=== PATIENT | female | born 1955 | race Two or more races ===

== ENCOUNTER → 2021-06-21 | Outpatient (CLI) | payer OTHER | END | disposition home or self-care (01) | LOC: LAB 14:56 → EDBD 14:56 | PROVIDERS: ATTEND Obstetrics & Gynecology | DX: N88.8 Other specified noninflammatory disorders of cervix uteri (principal) | CPT/HCPCS: 88302 ==

== ENCOUNTER 2024-08-13 00:48 | Inpatient (IN) | payer OTHER ==
[~2024-08-13] VITALS: Ht 162.6 cm; Wt 99.9 kg
[2024-08-13] VITALS (8 sets, daily range): BP systolic 96–116; BP diastolic 51–58; PULSE 62–91; RESP 11–20; TEMP 97.7–100.5; O2SAT 91–98
[2024-08-13 02:12] LABS: Urine Amorphous Crystal FEW /hpf (None Seen); Urine Bacteria FEW /hpf (None Seen); Urine Blood Negative /uL (Negative); Urine Clarity Turbid (Clear); Urine Color Light-Yellow (Yellow); Urine Mucus FEW (None Seen); Urine Protein, UAD Negative (Negative); Urine Specific Gravity 1.014 (1.001-1.035); Urine Urobilinogen Normal (Negative); Urine WBC 3 /hpf (0 - 5); Urine pH 7.5 (5.0-9.0)
[2024-08-13 02:40] LABS: Basophils # (auto) 0 10 ^3/uL (0-0.2); Basophils % (auto) 0.1 % (0.0-2.0); Eosinophils # (auto) 0 10 ^3/uL (0-0.8); Eosinophils % (auto) 0.3 % (0.0-7.0); Hemoglobin 15.1 g/dL (12.2-16.2); Lymphocytes # (auto) 0.7 10 ^3/uL (0.4-5.4); Monocytes % (auto) 4.8 % (0.0-12.0)
[2024-08-13 02:41] LABS: Hematocrit 43.7 % (36.0-46.0); Lymphocytes % (auto) 9.2 % (10.0-50.0); Mean Corpuscular Hgb Conc. 34.5 g/dL (32.0-36.0); Mean Corpuscular Volume 98.5 fL (80.0-100.0); Monocytes # (auto) 0.3 10 ^3/uL (0-1.3); Neutrophils # (auto) 6.2 10 ^3/uL (1.6-8.6); Neutrophils % (auto) 85.6 % (37.0-80.0); Platelet Count (auto) 183 10^3/uL (140-450); Red Blood Cells 4.44 10^6/uL (4.0-5.20); Red Cell Distribution Width 12.8 % (11.8-14.3); White Blood Cell 7.2 10^3/uL (4.4-10.8)
--- NOTE | 2024-08-13 02:44 | ED.PDOC ---
History of Present Illness HPI Comments 69 y/o F, with a Hx of HLD, HTN, obesity, and EtOH use, presents with c/o abdominal pain, nausea, chills, diaphoresis, and constipation, today. Patient endorses on sudden and unprovoked onset of symptoms, this morning. She states on pain, initially, starting in her RLQ and then radiating to her RUQ and then across to her LUQ and it worsening whenever laying on her back or right-side. She also endorses on no relief or improvement of symptoms with Pepto Bismol, Tums, or Jocelyn Butterfield use. Patient informs of having no pertinent or relevant Hx aside from a FMHX of appendicits. Patient reports no recent stressors, injuries, sick contact, spoiled food, or substance use/exposure. Patient denies having any vomiting, diarrhea, fever, or other associated symptoms or modifiers at this time. Chief Complaint: Abdominal Pain Time Seen by MD: 02:20 Reviewed Notes: Nurses Notes, Medications, Allergies Allergies: Coded Allergies: Penicillins (Verified Allergy, Unknown, 08/13/24) Information Source: Patient Mode of Arrival: Ambulatory Severity: Moderate Timing: Hours Duration: Since onset Prehospital treatment: None Past Medical History PAST MEDICAL HISTORY: High Lipids, HTN Past Medical History (Other): obesity Surgical History: Denies all surgeries [employer] History: Denies all [employer] Hx Family History Family History (Other): appendicitis Social History Smoker: Non-Smoker Alcohol: Occasionally Drugs: Denies Drug Use Lives In: Home Constitutional: reports: chills, diaphoresis; denies: fatigue, fever, malaise, sweats, weakness, others EENTM: denies: blurred vision, double vision, ear bleeding, ear discharge, ear drainage, ear pain, ear ringing, eye pain, eye redness, hearing loss, mouth pain, mouth swelling, nasal discharge, nose bleeding, nose congestion, nose pain, photophobia, tearing, throat pain, throat swelling, voice changes, others Respiratory: denies: cough, hemoptysis, orthopnea, SOB at rest, shortness of breath, SOB with excertion, stridor, wheezing, others Cardiovascular: denies: chest pain, dizzy spells, diaphoresis, Dyspnea on exertion, edema, irregular heart beat, left arm pain, lightheadedness, palpitations, PND, syncope, others Gastrointestinal: reports: abdominal pain (RLQ, radiates to RUQ and LUQ ), constipated, nausea; denies: abdomen distended, blood streaked bowels, diarrhea, dysphagia, difficulty swallowing, hematemesis, melena, poor appetite, poor fluid intake, rectal bleeding, rectal pain, vomiting, others Genitourinary: denies: abnormal vagina bleeding, burning, dyspareunia, dysuria, flank pain, frequency, hematuria, incontinence, pain, , vagina discharge, urgency, others Neurological: denies: dizziness, fainting, headache, left sided numbness, left sided weakness, numbness, paresthesia, pre-existing deficit, right sided numbnes s, right sided weakness, seizure, speech problems, tingling, tremors, weakness, others Musculoskeletal: denies: back pain, gout, joint pain, joint swelling, muscle pain, muscle stiffness, neck pain, others Integumetry: denies: bruises, change in color, change in hair/nails, dryness, laceration, lesions, lumps, rash, wounds, others Allergic/Immunocompromised: denies: Difficulty Healing, Frequent Infections, Hives, Itching, others Hematologic/Lymphatic: denies: anemia, blood clots, easy bleeding, easy bruising, swollen glands, others Endocrine: denies: excessive hunger, excessive sweating, excessive thirst, excessive urination, flushing, intolerance to cold, intolerance to heat, unexplained weight gain, unexplained weight loss, others Psychiatric: denies: anxiety, bipolar disorder, depression, hopeless, panic disorder, schizophrenia, sleepless, suicidal, others All Other Systems: Reviewed and Negative Physical Exam General Appearance: Moderate Distress, Obese HEENT: Normal ENT Inspection, Pharynx Normal, TMs Normal Neck: Full Range of Motion, Non-Tender, Normal, Normal Inspection Respiratory: Chest Non-Tender, Lungs Clear, No Accessory Muscle Use, No Respiratory Distress, Normal Breath Sounds Cardiovascular: No Edema, No JVD, No Murmur, No Gallop, Normal Peripheral Pulses, Regular Rate/Rhythm Breast Exam: Deferred Gastrointestinal: Diffuse, No Organomegaly, No Pulsatile Mass, Normal Bowel Sounds, RLQ (RLQ tendernes, moderate without rebound ), Soft, Tenderness (RLQ tendernes, moderate without rebound ) Genitalia: Deferred Pelvic: Deferred Rectal: Deferred Extremities: No calf tenderness, Normal capillary refill, Normal inspection, Normal range of motion, Non-tender, No pedal edema Musculoskeletal : Apperance: Normal Neurologic: Alert, security ambassador II-XII nml as Tested, No Motor Deficits, Normal Affect, Normal Mood, No Sensory Deficits Cerebellar Function: Normal Reflexes: Normal Skin: Dry, Normal Color, Warm Lymphatic: No Adenopathy Was a procedure done? Was a procedure done?: No Differential Dx Considerations may include: appendicitis, ectopic , ovarian cysts, nephrolithiasis, pyelonephritis, renal colic, acute abdomen X-Ray, Labs, Meds, VS Vital Signs Date Time Temp Pulse Resp B/P (MAP) Pulse Ox O2 Delivery O2 Flow Rate FiO2 08/13/24 03:21 98.5 67 18 134/73 (93) 99 98.5 08/13/24 03:20 20 96 Room Air* 0 21 21 08/13/24 00:58 97.9 81 18 138/55 (82) 96 Lab Test 08/13/24 03:15 08/13/24 02:31 08/13/24 01:00 Range/Units Troponin I High Sensitivity 18 19 </=34 ng/L White Blood Count 7.2 4.4-10.8 10^3/uL Red Blood Count 4.44 4.0-5.20 10^6/uL Hemoglobin 15.1 12.2-16.2 g/dL Hematocrit 43.7 36.0-46.0 % Mean Corpuscular Volume 98.5 80.0-100.0 fL Mean Corpuscular Hemoglobin 34.0 H 28.0-32.0 pg Mean Corpuscular Hemoglobin Concent 34.5 32.0-36.0 g/dL Red Cell Distribution Width 12.8 11.8-14.3 % Platelet Count 183 140-450 10^3/uL Mean Platelet Volume 7.5 6.9-10.8 fL Neutrophils (%) (Auto) 85.6 H 37.0-80.0 % Lymphocytes (%) (Auto) 9.2 L 10.0-50.0 % Monocytes (%) (Auto) 4.8 0.0-12.0 % Eosinophils (%) (Auto) 0.3 0.0-7.0 % Basophils (%) (Auto) 0.1 0.0-2.0 % Neutrophils # (Auto) 6.2 1.6-8.6 10 ^3/uL Lymphocytes # (Auto) 0.7 0.4-5.4 10 ^3/uL Monocytes # (Auto) 0.3 0-1.3 10 ^3/uL Eosinophils # (Auto) 0 0-0.8 10 ^3/uL Basophils # (Auto) 0 0-0.2 10 ^3/uL Nucleated Red Blood Cells 0.0 % Sodium Level 139 136-145 mmol/L Potassium Level 4.4 3.5-5.1 mmol/L Chloride Level 100 98-107 mmol/L Carbon Dioxide Level 30 20-31 mmol/L Anion Gap 9 5-15 Blood Urea Nitrogen 8 L 9-23 mg/dL Creatinine 0.90 0.550-1.02 mg/dL Glomerular Filtration Rate Calc 70 >90 mL/min BUN/Creatinine Ratio 8.9 L 10.0-20.0 Serum Glucose 164 H 74-106 mg/dL Calcium Level 10.6 H 8.7-10.4 mg/dL Total Bilirubin 1.2 H 0.2-1.0 mg/dL Aspartate Amino Transferase (AST) 17 13-40 U/L Alanine Aminotransferase (ALT) 12 7-40 U/L Alkaline Phosphatase 111 46-116 U/L Total Protein 7.2 5.7-8.2 g/dL Albumin 4.6 3.2-4.8 g/dL Lipase 29 12-53 U/L Urine Color Light-yellow Yellow Urine Clarity Turbid H Clear Urine pH 7.5 5.0-9.0 Urine Specific [place] 1.014 1.001-1.035 Urine Protein Negative Negative Urine Ketones 1+ H Negative Urine Blood Negative Negative /uL Urine Nitrite Negative Negative Urine Bilirubin Negative Negative Urine Urobilinogen Normal Negative mg/dL Urine Leukocyte Esterase Negative Negative /uL Urine RBC 1 0 - 4 /hpf Urine WBC 3 0 - 5 /hpf Urine Squamous Epithelial Cells Few <5 /hpf Urine Amorphous Crystals Few None Seen /hpf Urine Bacteria Few H None Seen /hpf Urine Mucus Few None Seen Urine Glucose Normal Normal mg/dL Current Medications Medications (Trade) Dose Ordered Sig/Lena Route Start Time Stop Time Status Last Admin Ondansetron HCl (Zofran Po) 4 mg ONCE ONCE PO 08/13/24 02:30 08/13/24 02:31 DC 08/13/24 03:19 Acetaminophen/ Hydrocodone Bitart ([place] 10/325MG Tab) 1 tab ONCE ONCE PO 08/13/24 02:30 08/13/24 02:31 DC 08/13/24 03:20 First troponin is 19. Second troponin is 18. EKG shows no signs of ischemia. UA is normal. Lipase is 29. CMP is normal. CBC is normal [place] [address] Ph: [phone] DIAGNOSTIC IMAGING Diagnostic Imaging Report : [id number] Signed PATIENT: NABOR HORNE AACCT: [id number] UNIT: [id number] : 1955 LOC: ER ROOM / BED: / AGE / SEX: 69 / F ADM STATUS: REG ER SERVICE 6 ORDERING PHYSICIAN: REINALDO MONIQUE MD PROCEDURE(s): ABPL - CT AB PEL WO CON-NO ORAL OR IV REASON: abd pain ORDER NUMBER(s): [id number], ACCESSION NUMBER(s): [id number] Exam: CT CT AB PEL WO CON-NO ORAL OR IV History: abd pain Comparison Study: None available at time of dictation. TECHNIQUE: Multidetector CT of the abdomen was performed from lung bases to p ubic symphysis. Imaging was performed without IV contrast. Axial, coronal and sagittal multiplanar reformats were obtained from the axial data set by the technologist. Radiation optimization: All CT scans at this facility use at least one of these dose optimization techniques: automated exposure control mA and/or kV adjustment per patient size (includes targeted exams where dose is matched to clinical indication) or iterative reconstruction. Radiation Dose : 1. Abdomen/Pelvis: DLP 1086.12 mGy*cm. FINDINGS: Evaluation of solid organs is limited due to lack of intravenous contrast use. Findings: Imaged portions of the lung bases appear unremarkable. Limited noncontrast evaluation of the liver, spleen, pancreas and adrenal glands appear unremarkable. There is cholelithiasis. No evidence of bowel obstruction. The appendix is dilated measuring 1.5 cm with multiple calculi including large calculus at the proximal aspect measuring 1.2 cm. No discrete abscess or evidence of perforation. No free fluid, free air, or adenopathy. No suspicious osseous lesion. Severe degenerative changes at L5-S1. IMPRESSION: 1. Findings consistent with acute appendicitis with appendicolith. No evidence of perforation or abscess. HS:Y ATED BY: EDEN COON MD DICTATED DATE/TIME: 08/13/24515 SIGNED BY: EDEN COON MD SIGNED DATE/TIME: 08/13/24515 CC: Dr. Styles was called and paged. The patient will be admitted to the hospitalist for further evaluation and care. Time of 1ST Reevaluation: 02:50 Reevaluation 1ST: Unchanged Patient Education/Counseling: Diagnosis, Treatment Family Education/Counseling: No Family Present Departure 1 Departure Time of Disposition: 05:35 Impression: Primary Impression: Appendicitis Qualified Codes: K35.80 - Unspecified acute appendicitis Disposition: 09 ADMITTED INPATIENT Admit to: Med Surg Condition: Guarded Discharged With: Self Critical Care Note Critical Care Time?: No Stability Stability form required: No Heart Score Heart Score: Heart Score Response (Comments) Value History N/A 0 EKG N/A 0 Age N/A 0 Risk Factors N/A 0 Troponin N/A 0 Total 0 I personally scribed for REINALDO MONIQUE MD ([email or web address]) on 08/13/24 at 02:44. Electronically submitted by Zaid Mora ([email or web address]). REINALDO MONIQUE MD Aug 13, 2024 02:44
[2024-08-13 02:53] LABS: Alanine Aminotransferase 12 U/L (7-40); Alkaline Phosphatase 111 U/L (46-116); Anion Gap 9 (5-15); Aspartate Aminotransferase 17 U/L (13-40); BUN/Creatinine Ratio 8.9 (10.0-20.0); Carbon Dioxide 30 mmol/L (20-31); Chloride 100 mmol/L (98-107); Lipase 29 U/L (12-53); Potassium 4.4 mmol/L (3.5-5.1); Sodium 139 mmol/L (136-145)
[2024-08-13 02:54] LABS: Albumin 4.6 g/dL (3.2-4.8); Total Protein 7.2 g/dL (5.7-8.2)
[2024-08-13 02:55] LABS: Bilirubin, Total 1.2 mg/dL (0.2-1.0); Blood Urea Nitrogen 8 mg/dL (9-23); Calcium 10.6 mg/dL (8.7-10.4); Glucose 164 mg/dL (74-106)
[2024-08-13] MEDS: ONDANSETRON ODT 4 MG TAB PO ONE (03:19)
[2024-08-13] MEDS: HYDROcodone-ACET 10/325MG TAB PO ONE (03:20)
--- NOTE | 2024-08-13 05:17 | DVH ---
Exam: CT CT AB PEL WO CON-NO ORAL OR IV History: abd pain Comparison Study: None available at time of dictation. TECHNIQUE: Multidetector CT of the abdomen was performed from lung bases to pubic symphysis. Imaging was performed without IV contrast. Axial, coronal and sagittal multiplanar reformats were obtained fr om the axial data set by the technologist. Radiation optimization: All CT scans at this facility use at least one of these dose optimization gilberto hniques: automated exposure control mA and/or kV adjustment per patient size (includes targeted exam s where dose is matched to clinical indication) or iterative reconstruction. Radiation Dose : 1. Abdomen/Pelvis: DLP 1086.12 mGy*cm. FINDINGS: Evaluation of solid organs is limited due to lack of intravenous contrast use. Findings: Imaged portions of the lung bases appear unremarkable. Limited noncontrast evaluation of the liver, spleen, pancreas and adrenal glands appear unremarkable. There is cholelithiasis. No evidence of bowel obstruction. The appendix is dilated measuring 1.5 cm with multiple calculi including large calculus at the proximal aspect measuring 1.2 cm. No discrete abscess or evidence of perforation. No free fluid, free air, or adenopathy. No suspicious osseous lesion. Severe degenerative changes at L5-S1. IMPRESSION: 1. Findings consistent with acute appendicitis with appendicolith. No evidence of perforation or absc ess. HS:Y
[2024-08-13 05:55] LABS: INR 1.02 (0.9-1.15); Prothrombin Time 10.8 sec (9.3-11.8)
--- NOTE | 2024-08-13 07:52 | DVH ---
CHEST RADIOGRAPH Indication: appendicitis Technique: Single frontal view of the chest was obtained Comparison: None IMPRESSION: The heart appears prominent size. The lungs appear clear without focal airspace opacity, effusion, o r pneumothorax.
[2024-08-13] MEDS: fentaNYL CITRATE 100 MCG/2 ML VL IV ONE (08:48)
[2024-08-13] MEDS: SODIUM CHLORIDE 0.9% 2,000 ML IV ONE (08:48)
[2024-08-13] MEDS: cefTRIAXone 1GM/50ML D5W 50 ML IV ONE (08:48)
[2024-08-13] MEDS ORDERED: MORPHINE SULFATE 4 MG/ML SYR/VIAL IV PRN (09:15)
[2024-08-13] MEDS: ONDANSETRON HCL 4 MG/2 ML VIAL IV PRN (10:58)
[2024-08-13] MEDS: MORPHINE SULFATE INJ 2 MG/ml SYRG IV PRN (10:59)
[2024-08-13] MEDS: LIDOCAINE W/ EPINEPHRINE 1% 20ML VIAL ONE (11:23)
[2024-08-13] MEDS: D5W/SOD CHL 0.45% 1,000 ML IV SCH (11:26)
[2024-08-13] MEDS ORDERED: MIDAZOLAM HCL 2MG/2ML 2ml VIAL (1mg/ml) ONE (11:29)
[2024-08-13] MEDS ORDERED: fentaNYL CITRATE 100 MCG/2 ML VL ONE (11:29)
[2024-08-13] MEDS ORDERED: PROPOFOL 10 MG/ML 20 ML IV ONE ×2 (11:29→13:20)
[2024-08-13] MEDS ORDERED: ROCURONIUM 10MG/ML 10ML VIAL IV ONE (11:29)
[2024-08-13] MEDS ORDERED: ONDANSETRON HCL 4 MG/2 ML VIAL ONE (11:31)
[2024-08-13] MEDS ORDERED: LIDOCAINE 2% (LOCAL ANESTH.) PF 5ml SDV ONE (11:32)
--- NOTE | 2024-08-13 11:52 | DVHINCON2 ---
Date of service: Aug 13, 2024 History of Present Illness 69-year-old female complaining of one day history of right lower quadrant abdominal pain associated with nausea. Patient denies any fevers or chills. Past Medical History Hypertension Past Surgical History Denies any abdominal surgeries Family History Noncontributory Social History Denies tobacco. Reports some alcohol. No IV drug use. Allergies: Coded Allergies: Penicillins (Verified Allergy, Unknown, 08/13/24) Current Medications Current Medications Medications (Trade) Dose Ordered Sig/Lena Route PRN Reason Start Time Stop Time Status Last Admin Morphine Sulfate 2 mg Q3HPRN PRN IV MODERATE PAIN (4-6 PAIN SCALE) 08/13/24 09:15 08/13/24 10:59 Morphine Sulfate 3 mg Q3HPRN PRN IV SEVERE PAIN (7-10 PAIN SCALE) 08/13/24 09:15 Ondansetron HCl (Zofran) 4 mg Q4HPRN PRN IV NAUSEA / VOMITING 08/13/24 09:15 08/13/24 10:58 Dextrose/Sodium Chloride 1,000 ml @ 75 mls/hr [id number] IV 08/13/24 09:15 08/13/24 11:26 Vital Signs Vital Signs Date Time Temp Pulse Resp B/P (MAP) Pulse Ox O2 Delivery O2 Flow Rate FiO2 08/13/24 11:31 74 16 126/55 08/13/24 10:00 97 08/13/24 08:00 98.4 98.4 08/13/24 07:28 Nasal Cannula* 2 28 Physical Exam GEN: Age-appropriate female in no acute distress. Alert. HEENT: Normocephalic atraumatic. Moist mucous membranes. Anicteric sclerae. CV: RRR Respiratory: CTAB ABD: Localized right lower quadrant tenderness to palpation with localized guarding. Nondistended. CT of the abdomen and pelvis: Appendix is dilated measuring up to 1.5 cm with multiple calculi including a large calculus at the proximal aspect measuring 1.2 cm consistent with acute appendicitis. Labs/Diagnostic Data Labs Test 08/13/24 03:15 08/13/24 02:31 08/13/24 01:00 Range/Units Troponin I High Sensitivity 18 </=34 ng/L White Blood Count 7.2 4.4-10.8 10^3/uL Red Blood Count 4.44 4.0-5.20 10^6/uL Hemoglobin 15.1 12.2-16.2 g/dL Hematocrit 43.7 36.0-46.0 % Mean Corpuscular Volume 98.5 80.0-100.0 fL Mean Corpuscular Hemoglobin 34.0 H 28.0-32.0 pg Mean Corpuscular Hemoglobin Concent 34.5 32.0-36.0 g/dL Red Cell Distribution Width 12.8 11.8-14.3 % Platelet Count 183 140-450 10^3/uL Mean Platelet Volume 7.5 6.9-10.8 fL Neutrophils (%) (Auto) 85.6 H 37.0-80.0 % Lymphocytes (%) (Auto) 9.2 L 10.0-50.0 % Monocytes (%) (Auto) 4.8 0.0-12.0 % Eosinophils (%) (Auto) 0.3 0.0-7.0 % Basophils (%) (Auto) 0.1 0.0-2.0 % Neutrophils # (Auto) 6.2 1.6-8.6 10 ^3/uL Lymphocytes # (Auto) 0.7 0.4-5.4 10 ^3/uL Monocytes # (Auto) 0.3 0-1.3 10 ^3/uL Eosinophils # (Auto) 0 0-0.8 10 ^3/uL Basophils # (Auto) 0 0-0.2 10 ^3/uL Nucleated Red Blood Cells 0.0 % Prothrombin Time 10.8 9.3-11.8 sec Prothrombin Time INR 1.02 0.9-1.15 Sodium Level 139 136-145 mmol/L Potassium Level 4.4 3.5-5.1 mmol/L Chloride Level 100 98-107 mmol/L Carbon Dioxide Level 30 20-31 mmol/L Anion Gap 9 5-15 Blood Urea Nitrogen 8 L 9-23 mg/dL Creatinine 0.90 0.550-1.02 mg/dL Glomerular Filtration Rate Calc 70 >90 mL/min BUN/Creatinine Ratio 8.9 L 10.0-20.0 Serum Glucose 164 H 74-106 mg/dL Calcium Level 10.6 H 8.7-10.4 mg/dL Total Bilirubin 1.2 H 0.2-1.0 mg/dL Aspartate Amino Transferase (AST) 17 13-40 U/L Alanine Aminotransferase (ALT) 12 7-40 U/L Alkaline Phosphatase 111 46-116 U/L Total Protein 7.2 5.7-8.2 g/dL Albumin 4.6 3.2-4.8 g/dL Lipase 29 12-53 U/L Urine Color Light-yellow Yellow Urine Clarity Turbid H Clear Urine pH 7.5 5.0-9.0 Urine Specific [place] 1.014 1.001-1.035 Urine Protein Negative Negative Urine Ketones 1+ H Negative Urine Blood Negative Negative /uL Urine Nitrite Negative Negative Urine Bilirubin Negative Negative Urine Urobilinogen Normal Negative mg/dL Urine Leukocyte Esterase Negative Negative /uL Urine RBC 1 0 - 4 /hpf Urine WBC 3 0 - 5 /hpf Urine Squamous Epithelial Cells Few <5 /hpf Urine Amorphous Crystals Few None Seen /hpf Urine Bacteria Few H None Seen /hpf Urine Mucus Few None Seen Urine Glucose Normal Normal mg/dL Assessment 1. Acute appendicitis Plan/Recommendation 1. Laparoscopic appendectomy possible open surgery Informed consent: The surgery and its risks including but not limited to infection, bleeding requiring possible blood transfusion with the risk of hepatitis or HIV infection, open surgery, possibility that the abdominal pain is caused by different intra-abdominal pathology other than acute appendicitis in which case we will proceed with the appendectomy if it is safe to do so and then treat the problem according to intraoperative findings were explained to the patient and her . All questions were answered to their satisfaction. She expressed verbal understanding and wished to proceed with the surgery. Plan discussed with: Patient, Spouse JENNIE KING MD Aug 13, 2024 11:52
[2024-08-13] MEDS ORDERED: NITROGLYCERIN 0.4 MG SL TAB SL PRN (13:15)
[2024-08-13] MEDS ORDERED: MORPHINE SULFATE INJ 2 MG/ml SYRG IV PRN (13:15)
--- NOTE | 2024-08-13 13:18 | DVHOP2 ---
Operative Report - 2 Report Details Date: 08/13/24 Preop Diagnosis: Acute appendicitis Postop Diagnosis: Same Surgeon: Edis Lainez MD Coloring Room Worker: None Anesthesiologist: Dr. Pollock Anesthesia: General, Local Consent: The surgery and its risks including but not limited to infection, bleeding requiring possible blood transfusion, possible open surgery, possibility that the abdominal pain is caused by different intra-abdominal pathology other than acute appendicitis in which case we will proceed with the appendectomy if it is safe to do so and then treat the problem according to intraoperative findings, possible perioperative MA or stroke were explained to the patient and her . All questions were answered to the patient's satisfaction. The patient expressed verbal understanding and wished to proceed with the surgery. Complications: None Estimated Blood Loss: 30 mL Fluids: 900 mL Name of Procedure Performed Laparoscopic appendectomy Procedure Details Procedure Details: After induction of general anesthesia, a Hernandez catheter was placed by the OR nursing staff. Patient's abdomen was then prepped and draped in standard surgical fashion. A small supraumbilical incision was made and this incision wa s taken through the abdominal wall down to the fascia which was opened using electrocautery. Peritoneum was then bluntly divided gaining access to the intra-abdominal cavity. Interrupted 0 Vicryl sutures were placed through the supraumbilical fascial incision and a Richardson trocar was introduced and secured using the Vicryl sutures. Abdomen was insufflated to 15 mmHg and camera was inserted. Visual examination of the intestine under the fascial incision appeared normal without injury. Under direct visualization, a 5 mm bladeless trocar was placed in the left lower quadrant and a 2nd 5 mm bladeless trocar was placed in the suprapubic region both under direct visualization. Examination of the right lower quadrant revealed inflamed and dilated appendix without gross perforation. It was somewhat retrocecal in position and and minimal dissection was performed to free up the appendix and from the cecum. A small opening was made at the base of the appendix at the mesoappendix and a endova scular stapler was used to staple across the base of the appendix without complication. The mesoappendix was then stapled and divided using endovascular staplers. Specimen was then removed from the abdominal cavity using an endo pouch bag and sent off the surgical field. Abdomen was then re-insufflated. The staple line appeared intact without active bleeding. There was small amount of serosanguineous fluid collected in the pelvis and the pelvic area was then well irrigated until fluid was clear. Trocars were then removed under direct visualization as the abdomen was deflated. Additional interrupted 0 Vicryl sutures were placed through the supraumbilical fascial incision and the sutures were tied down closing off the supraumbilical fascia. Surgical sites were irrigated injected with 10 mL of 1% lidocaine with epinephrine. Skin incisions were closed using deborah. Surgical sites were cleaned and dried and dressings were applied. Sponge, needle, instrument count at the end of the case were reported to be correct by the nursing staff. Patient tolerated procedure well and at the time of dictation, she is being awakened from general anesthesia. Specimen: Appendix Condition Stable Disposition Still a Patient EDIS LAINEZ MD Aug 13, 2024 13:18
[2024-08-13] MEDS ORDERED: GLYCOPYRROLATE 0.2 MG/ML 1ML VIAL ONE (13:20)
[2024-08-13] MEDS ORDERED: NEOSTIGMINE 1 MG/ML INJ (10mg/10ML VIAL) ONE (13:21)
[2024-08-13] MEDS ORDERED: HYDROmorphone HCL 2 MG/ML VL/or syr IV PRN ×2 (13:45)
--- NOTE | 2024-08-13 16:21 | DVHHP2 ---
History of Present Illness Reason for Visit: Abdominal pain History of Present Illness 69 y/o F, with a Hx of HLD, HTN, obesity, and EtOH use, presents with c/o abdominal pain, nausea, chills, diaphoresis, and constipation, today. Patient endorses on sudden and unprovoked onset of symptoms, this morning. She states on pain, initially, starting in her RLQ and then radiating to her RUQ and then across to her LUQ and it worsening whenever laying on her back or right-side. She also endorses on no relief or improvement of symptoms with Pepto Bismol, Tums, or Jocelyn [place] use. Patient informs of having no pertinent or relevant Hx aside from a FMHX of appendicits. Patient reports no recent stressors, injuries, sick contact, spoiled food, or substance use/exposure. Patient denies having any vomiting, diarrhea, fever, or other associated symptoms or modifiers at this time. Patient noted to have a acute appendicitis based on presentation and CT of the abdomen and pelvis. ER physician called general surgeon who he is taking patient to OR for appendectomy. Subsequently patient will be admitted postop by hospitalist for medical management. Past Medical History Hypertension and hyperlipidemia Past Surgical History: None Family History: Hypertension Smoke: No ALCOHOL: occassional Lives: with Family Review of Systems Review of Systems No chest pain shortness for breath. No fevers chills sweats. Other review of systems reviewed normal. Allergies: Coded Allergies: Penicillins (Verified Allergy, Unknown, 08/13/24) Medications Current Medications Medications Dose Ordered Sig/Lena Route Start Time Stop Time Status Last Admin Dose Admin Morphine Sulfate 2 mg Q3HPRN PRN IV 08/13/24 09:15 08/13/24 10:59 2 MG Morphine Sulfate 3 mg Q3HPRN PRN IV 08/13/24 09:15 Ondansetron HCl 4 mg Q4HPRN PRN IV 08/13/24 09:15 08/13/24 10:58 4 MG Dextrose/Sodium Chloride 1,000 ml @ 75 mls/hr [id number] IV 08/13/24 09:15 08/13/24 11:26 75 MLS/HR Nitroglycerin 0.4 mg Q5MINP PRN SL 08/13/24 13:15 Morphine Sulfate 2 mg Q30M PRN IV 08/13/24 13:15 Exam Vital Signs Vital Signs Date Time Temp Pulse Resp B/P (MAP) Pulse Ox O2 Delivery O2 Flow Rate FiO2 08/13/24 14:33 98.2 72 18 96/51 (66) 96 98.2 08/13/24 14:30 Room Air* 0 21 Exam Patient underwent appendectomy few years ago. Now back in her room. at bedside. Comfortable in bed without distress. HEENT pupils equal round react to light. Neck supple no JVD. Heart regular rate and rhythm S1 plus S2. Lungs fair air movement without rales wheezing. Abdomen soft positive bowel sounds. Extremities no edema positive distal pedal pulses. Labs/Xrays Labs Test 08/13/24 03:15 08/13/24 02:31 08/13/24 01:00 Range/Units Troponin I High Sensitivity 18 </=34 ng/L White Blood Count 7.2 4.4-10.8 10^3/uL Red Blood Count 4.44 4.0-5.20 10^6/uL Hemoglobin 15.1 12.2-16.2 g/dL Hematocrit 43.7 36.0-46.0 % Mean Corpuscular Volume 98.5 80.0-100.0 fL Mean Corpuscular Hemoglobin 34.0 H 28.0-32.0 pg Mean Corpuscular Hemoglobin Concent 34.5 32.0-36.0 g/dL Red Cell Distribution Width 12.8 11.8-14.3 % Platelet Count 183 140-450 10^3/uL Mean Platelet Volume 7.5 6.9-10.8 fL Neutrophils (%) (Auto) 85.6 H 37.0-80.0 % Lymphocytes (%) (Auto) 9.2 L 10.0-50.0 % Monocytes (%) (Auto) 4.8 0.0-12.0 % Eosinophils (%) (Auto) 0.3 0.0-7.0 % Basophils (%) (Auto) 0.1 0.0-2.0 % Neutrophils # (Auto) 6.2 1.6-8.6 10 ^3/uL Lymphocytes # (Auto) 0.7 0.4-5.4 10 ^3/uL Monocytes # (Auto) 0.3 0-1.3 10 ^3/uL Eosinophils # (Auto) 0 0-0.8 10 ^3/uL Basophils # (Auto) 0 0-0.2 10 ^3/uL Nucleated Red Blood Cells 0.0 % Prothrombin Time 10.8 9.3-11.8 sec Prothrombin Time INR 1.02 0.9-1.15 Sodium Level 139 136-145 mmol/L Potassium Level 4.4 3.5-5.1 mmol/L Chloride Level 100 98-107 mmol/L Carbon Dioxide Level 30 20-31 mmol/L Anion Gap 9 5-15 Blood Urea Nitrogen 8 L 9-23 mg/dL Creatinine 0.90 0.550-1.02 mg/dL Glomerular Filtration Rate Calc 70 >90 mL/min BUN/Creatinine Ratio 8.9 L 10.0-20.0 Serum Glucose 164 H 74-106 mg/dL Calcium Level 10.6 H 8.7-10.4 mg/dL Total Bilirubin 1.2 H 0.2-1.0 mg/dL Aspartate Amino Transferase (AST) 17 13-40 U/L Alanine Aminotransferase (ALT) 12 7-40 U/L Alkaline Phosphatase 111 46-116 U/L Total Protein 7.2 5.7-8.2 g/dL Albumin 4.6 3.2-4.8 g/dL Lipase 29 12-53 U/L Urine Color Light-yellow Yellow Urine Clarity Turbid H Clear Urine pH 7.5 5.0-9.0 Urine Specific [place] 1.014 1.001-1.035 Urine Protein Negative Negative Urine Ketones 1+ H Negative Urine Blood Negative Negative /uL Urine Nitrite Negative Negative Urine Bilirubin Negative Negative Urine Urobilinogen Normal Negative mg/dL Urine Leukocyte Esterase Negative Negative /uL Urine RBC 1 0 - 4 /hpf Urine WBC 3 0 - 5 /hpf Urine Squamous Epithelial Cells Few <5 /hpf Urine Amorphous Crystals Few None Seen /hpf Urine Bacteria Few H None Seen /hpf Urine Mucus Few None Seen Urine Glucose Normal Normal mg/dL Assessment/Plan Assessment/Plan Acute appendicitis status post appendectomy. Hypertension Hyperlipidemia Continue current supportive care and treatment as she is on. Empiric antibiotics IV fluids. Pain and nausea medications. Incentive spirometry. Clear liquid diet advance as she tolerates. Resume home medications. Otherwise follow clinical management per clinical course/postop recovery and recommendations from the surgeon. Discussed with the at bedside regard ing care plan. Plan discussed with: Spouse My Orders Orders - BERNABE DANIELSON MD Procedure Category Date Status Time * Surgical Consult CONS 08/13/24 Transmitted Morphine Sulfate PHA 08/13/24 In Process Injection 09:15 Morphine Sulfate PHA 08/13/24 In Process Injection 09:15 Ondansetron Hcl PHA 08/13/24 In Process (Zofran) 09:15 D5w/Sod Chl 0.45% PHA 08/13/24 In Process (D5w 1/2ns) 09:15 Basic Metabolic Panel LAB 08/14/24 Verified 04:00 Complete Blood Count LAB 08/14/24 Verified 04:00 Admit ADMIT 08/13/24 Transmitted 13:11 Oxygen By Nasal RT 08/13/24 Transmitted Cannula 13:11 Nitroglycerin PHA 08/13/24 In Process Sublingual (Ntrostat 13:15 Morphine Sulfate PHA 08/13/24 In Process Injection 13:15 Notify Of Changes [facility] 08/13/24 In Process From Base 13:11 Correspondence Transcriber For [facility] 08/13/24 In Process 24 Hours 13:11 Emergency Dysrhythmia [facility] 08/13/24 In Process Protocol 13:11 Rhythm Strips Once [facility] 08/13/24 In Process Every Shift 13:11 Problem List: (1) Abdominal pain (2) Appendicitis BERNABE DANIELSON MD Aug 13, 2024 16:21
[2024-08-13] MEDS: ONDANSETRON HCL 4 MG/2 ML VIAL IV ONE (16:45)
[2024-08-13] MEDS: HYDROcodone-ACET 5/325MG TAB PO PRN (18:41)
[2024-08-13] MEDS: LISINOPRIL 5 MG TAB PO SCH (22:00)
[2024-08-13] MEDS: FAMOTIDINE 20 MG TAB PO SCH (22:07)
[2024-08-14] VITALS (8 sets, daily range): BP systolic 98–136; BP diastolic 39–77; PULSE 68–79; RESP 16–18; TEMP 97.9–98.5; O2SAT 93–98
[2024-08-14 05:46] LABS: Basophils # (auto) 0 10 ^3/uL (0-0.2); Eosinophils # (auto) 0 10 ^3/uL (0-0.8); Eosinophils % (auto) 0.8 % (0.0-7.0); Hemoglobin 12.5 g/dL (12.2-16.2); Monocytes # (auto) 0.6 10 ^3/uL (0-1.3); Monocytes % (auto) 9.4 % (0.0-12.0); Neutrophils # (auto) 4.6 10 ^3/uL (1.6-8.6); White Blood Cell 6.3 10^3/uL (4.4-10.8)
[2024-08-14 05:48] LABS: Basophils % (auto) 0.2 % (0.0-2.0); Hematocrit 36.2 % (36.0-46.0); Lymphocytes % (auto) 15.8 % (10.0-50.0); Mean Corpuscular Hemoglobin 34.3 pg (28.0-32.0); Mean Corpuscular Hgb Conc. 34.4 g/dL (32.0-36.0); Mean Corpuscular Volume 99.7 fL (80.0-100.0); Neutrophils % (auto) 73.8 % (37.0-80.0); Platelet Count (auto) 133 10^3/uL (140-450); Red Blood Cells 3.63 10^6/uL (4.0-5.20)
[2024-08-14 05:58] LABS: Anion Gap 8 (5-15); Carbon Dioxide 27 mmol/L (20-31); Chloride 103 mmol/L (98-107); Potassium 3.7 mmol/L (3.5-5.1); Sodium 138 mmol/L (136-145)
[2024-08-14 06:04] LABS: BUN/Creatinine Ratio 8.3 (10.0-20.0)
[2024-08-14 06:14] LABS: Blood Urea Nitrogen 6 mg/dL (9-23); Calcium 8.7 mg/dL (8.7-10.4); Glucose 116 mg/dL (74-106)
--- NOTE | 2024-08-14 10:00 | DVHPN2 ---
Progress Note - Dictate Date Seen: Aug 14, 2024 Medical Necessity Reason Pt with a Central, PICC or Fol: No Subjective E: no major events o/n. doing better. kaylen clear well. ambulating. vital signs Vital Sign Date Time Temp Pulse Resp B/P (MAP) Pulse Ox O2 Delivery O2 Flow Rate FiO2 08/14/24 08:49 116/70 08/14/24 07:43 Nasal Cannula* 2 08/14/24 05:00 98.0 74 17 98 98.0 Total Intake and Output 08/13/24 08/13/24 08/14/24 15:00 23:00 07:00 Intake Total 2000 ml 200 ml 175 ml Balance 2000 ml 200 ml 175 ml medications Current Medications Medications Dose Ordered Sig/Lena Route Start Time Stop Time Status Last Admin Dose Admin Morphine Sulfate 3 mg Q3HPRN PRN IV 08/13/24 09:15 Ondansetron HCl 4 mg Q4HPRN PRN IV 08/13/24 09:15 08/13/24 10:58 4 MG Dextrose/Sodium Chloride 1,000 ml @ 75 mls/hr [id number] IV 08/13/24 09:15 08/13/24 22:35 75 MLS/HR Nitroglycerin 0.4 mg Q5MINP PRN SL 08/13/24 13:15 Morphine Sulfate 2 mg Q30M PRN IV 08/13/24 13:15 Acetaminophen/ Hydrocodone Bitart 1 tab Q4HPRN PRN PO 08/13/24 16:30 08/13/24 18:41 1 TAB Famotidine 20 mg Q12HR PO 08/13/24 22:00 08/14/24 08:49 20 MG Lisinopril 10 mg QPM PO 08/15/24 18:00 objective GEN: NAD ABD: surgical dressings clean and dry. laboratory and microbiology Laboratory Tests 08/14/24 04:52 Test 08/14/24 04:52 Range/Units Serum Glucose 116 H 74-106 mg/dL Assessment/Plan A: 1. s/p lap appendectomy POD #1 doing well. P: 1. stable from surgery POV. 2. if discharged, f/u next week. call [phone] for f/u appt 3. remove bandages tomorrow. ok to shower and get incisions wet tomorrow. Plan discussed with: Patient JENNIE KING MD Aug 14, 2024 10:00
[2024-08-14] MEDS: ACETAMINOPHEN 325 MG TAB PO PRN (11:22)
[2024-08-14] MEDS ORDERED: PANT40TA2 PO (11:38)
[2024-08-14] MEDS ORDERED: LISI10TA34 PO (11:38)
[2024-08-14] MEDS ORDERED: HYDR-4902 PO (17:24)
[2024-08-14] MEDS ORDERED: SENN-105 PO (17:24)
--- NOTE | 2024-08-14 17:29 | DVHDS2 ---
Discharge Summary Date of Admission Aug 13, 2024 at 13:11 Date of Discharge: Aug 14, 2024 Labs/Diagnostic Data: Laboratory Results Test 08/14/24 04:52 08/13/24 03:15 08/13/24 02:31 08/13/24 01:00 White Blood Count 6.3 10^3/uL (4.4-10.8) Red Blood Count 3.63 10^6/uL (4.0-5.20) Hemoglobin 12.5 g/dL (12.2-16.2) Hematocrit 36.2 % (36.0-46.0) Mean Corpuscular Volume 99.7 fL (80.0-100.0) Mean Corpuscular Hemoglobin 34.3 pg (28.0-32.0) Mean Corpuscular Hemoglobin Concent 34.4 g/dL (32.0-36.0) Red Cell Distribution Width 13.0 % (11.8-14.3) Platelet Count 133 10^3/uL (140-450) Mean Platelet Volume 8.4 fL (6.9-10.8) Neutrophils (%) (Auto) 73.8 % (37.0-80.0) Lymphocytes (%) (Auto) 15.8 % (10.0-50.0) Monocytes (%) (Auto) 9.4 % (0.0-12.0) Eosinophils (%) (Auto) 0.8 % (0.0-7.0) Basophils (%) (Auto) 0.2 % (0.0-2.0) Neutrophils # (Auto) 4.6 10 ^3/uL (1.6-8.6) Lymphocytes # (Auto) 1.0 10 ^3/uL (0.4-5.4) Monocytes # (Auto) 0.6 10 ^3/uL (0-1.3) Eosinophils # (Auto) 0 10 ^3/uL (0-0.8) Basophils # (Auto) 0 10 ^3/uL (0-0.2) Nucleated Red Blood Cells 0.0 % Sodium Level 138 mmol/L (136-145) Potassium Level 3.7 mmol/L (3.5-5.1) Chloride Level 103 mmol/L (98-107) Carbon Dioxide Level 27 mmol/L (20-31) Anion Gap 8 (5-15) Blood Urea Nitrogen 6 mg/dL (9-23) Creatinine 0.72 mg/dL (0.550-1.02) Glomerular Filtration Rate Calc 92 mL/min (>90) BUN/Creatinine Ratio 8.3 (10.0-20.0) Serum Glucose 116 mg/dL (74-106) Calcium Level 8.7 mg/dL (8.7-10.4) Troponin I High Sensitivity 18 ng/L (</=34) Prothrombin Time 10.8 sec (9.3-11.8) Prothrombin Time INR 1.02 (0.9-1.15) Total Bilirubin 1.2 mg/dL (0.2-1.0) Aspartate Amino Transferase (AST) 17 U/L (13-40) Alanine Aminotransferase (ALT) 12 U/L (7-40) Alkaline Phosphatase 111 U/L (46-116) Total Protein 7.2 g/dL (5.7-8.2) Albumin 4.6 g/dL (3.2-4.8) Lipase 29 U/L (12-53) Urine Color Light-yellow (Yellow) Urine Clarity Turbid (Clear) Urine pH 7.5 (5.0-9.0) Urine Specific [place] 1.014 (1.001-1.035) Urine Protein Negative (Negative) Urine Ketones 1+ (Negative) Urine Blood Negative /uL (Negative) Urine Nitrite Negative (Negative) Urine Bilirubin Negative (Negative) Urine Urobilinogen Normal mg/dL (Negative) Urine Leukocyte Esterase Negative /uL (Negative) Urine RBC 1 /hpf (0 - 4) Urine WBC 3 /hpf (0 - 5) Urine Squamous Epithelial Cells Few /hpf (<5) Urine Amorphous Crystals Few /hpf (None Seen) Urine Bacteria Few /hpf (None Seen) Urine Mucus Few (None Seen) Urine Glucose Normal mg/dL (Normal) Other Laboratory Tests 08/14/24 04:52 Brief Hx & Hospital Course: 69 y/o F, with a Hx of HLD, HTN, obesity, and EtOH use, presents with c/o abdominal pain, nausea, chills, diaphoresis, and constipation, today. Patient endorses on sudden and unprovoked onset of symptoms, this morning. She states on pain, initially, starting in her RLQ and then radiating to her RUQ and then across to her LUQ and it worsening whenever laying on her back or right-side. She also endorses on no relief or improvement of symptoms with Pepto Bismol, Tums, or Jocelyn [place] use. Patient informs of having no pertinent or relevant Hx aside from a FMHX of appendicits. Patient reports no recent stressors, injuries, sick contact, spoiled food, or substance use/exposure. Patient denies having any vomiting, diarrhea, fever, or other associated symptoms or modifiers at this time. Patient noted to have a acute appendicitis based on presentation and CT of the abdomen and pelvis. ER physician called general surgeon who he is taking patient to OR for appendectomy. Subsequently patient will be admitted postop by hospitalist for medical management. Patient underwent a successful appendectomy. Postop patient is doing well and re-evaluated by General surgery. Patient is tolerating diet. Passing flatus without any problems. Pain has resolved. Therefore it is felt she could be safely discharged home with continued outpatient follow up with her general surgeon. Had talked with the patient and at bedside regarding hospital diagnosis, procedure she had done, discharge medications, discharge instructions and follow-up plan of care. Both of them verbalized understanding of these and agree with the discharge care plan. Operations or Procedures Operative Report - 2 Report Details Date: 08/13/24 Preop Diagnosis: Acute appendicitis Postop Diagnosis: Same Surgeon: Edis Lainez MD Cocktail Server: None Anesthesiologist: Dr. Pollock Anesthesia: General, Local Consent: The surgery and its risks including but not limited to infection, bleeding requiring possible blood transfusion, possible open surgery, possibility that the abdominal pain is caused by different intra-abdominal pathology other than acute appendicitis in which case we will proceed with the appendectomy if it is safe to do so and then treat the problem according to intraoperative findings, possible perioperative LA or stroke were explained to the patient and her . All questions were answered to the patient's satisfaction. The patient expressed verbal understanding and wished to proceed with the surgery. Complications: None Estimated Blood Loss: 30 mL Fluids: 900 mL Name of Procedure Performed Laparoscopic appendectomy Procedure Details Procedure Details: After induction of general anesthesia, a Hernandez catheter was placed by the OR nursing staff. Patient's abdomen was then prepped and draped in standard surgical fashion. A small supraumbilical incision was made and this incision was taken through the abdominal wall down to the fascia which was opened using electrocautery. Peritoneum was then bluntly divided gaining access to the intra-abdominal cavity. Interrupted 0 Vicryl sutures were placed through the supraumbilical fascial incision and a Richardson trocar was introduced and secured using the Vicryl sutures. Abdomen was insufflated to 15 mmHg and camera was inserted. Visual examination of the intestine under the fascial incision appeared normal without injury. Under direct visualization, a 5 mm bladeless trocar was placed in the left lower quadrant and a 2nd 5 mm bladeless trocar was placed in the suprapubic region both under direct visualization. Examination of the right lower quadrant revealed inflamed and dilated appendix without gross perforation. It was somewhat retrocecal in position and and minimal dissection was performed to free up the appendix and from the cecum. A small opening was made at the base of the appendix at the mesoappendix and a endovascular stapler was used to staple across the base of the appendix without complication. The mesoappendix was then stapled and divided using endovascular staplers. Specimen was then removed from the abdominal cavity using an endo pouch bag and sent off the surgical field. Abdomen was then re-insufflated. The staple line appeared intact without active bleeding. There was small amount of serosanguineous fluid collected in the pelvis and the pelvic area was then well irrigated until fluid was clear. Trocars were then removed under direct visualization as the abdomen was deflated. Additional interrupted 0 Vicryl sutures were placed through the supraumbilical fascial incision and the sutures were tied down closing off the supraumbilical fascia. Surgical sites were irrigated injected with 10 mL of 1% lidocaine with epinephrine. Skin incisions were closed using deborah. Surgical sites were cleaned and dried and dressings were applied. Sponge, needle, instrument count at the end of the case were reported to be correct by the nursing staff. Patient tolerated procedure well and at the time of dictation, she is being awakened from general anesthesia. Specimen: Appendix Condition Stable Condition at Discharge: Stable Final Diagnosis/Problems List Acute appendicitis status post appendectomy Discharge Disposition: Home Discharge Instruct/Medications Diet: Consistent carbohydrate, Cardiac 2g Na,low cholest Activity: No Restrictions, As Tolerated Follow Up/Referral: General surgeon Dr. Lainez next week. To call [phone] extension [phone] for follow up appointment Medications: As prescribed and home medications per discharge med list New Medications: Hydrocodone-Acetaminophen (Hydrocodone Bitartrate/AC 5-325 mg) 1 Tab Tab 1 TAB PO Q6HPRN PRN, #10 TAB Senna (Senna) 8.6 Mg Tab 8.6 MG PO QPM, #14 TAB Continued Medications: Lisinopril (Lisinopril) 10 Mg Tab 10 MG PO DAILY, MG Pantoprazole Sodium Sesquihydr (Protonix) 40 Mg Tab 40 MG PO DAILY, TAB Discharge Statement: "Patient was advised to return to the ER or call 911 if any headaches, dizziness, shortness of breath, chest pain, abdominal pain, bleeding, fevers, or worsening of medical condition. Patient was counseled about treatment plan, medications, possible side effects, patientverbalized understanding. All questions were answered to the best of my ability. This discharge took greater then 30 minutes in planning, reviewing documentation, counseling the patient, and discussing with other team members." ASSESSMENT ASSESSMENT Assessment Acute appendicitis status post appendectomy BERNABE DANIELSON MD Aug 14, 2024 17:29
[2024-08-15 01:00] VITALS: BP 126/64; PULSE 83; RESP 18; TEMP 99.3; O2SAT 93
[2024-08-15 05:00] VITALS: BP 141/67; PULSE 75; RESP 18; TEMP 98.6; O2SAT 93
[2024-08-15 09:00] VITALS: BP 151/63; PULSE 70; RESP 18; TEMP 98.3; O2SAT 95
[2024-08-15] MEDS ORDERED: LISINOPRIL 5 MG TAB PO SCH (18:00)
== END 2024-08-15 11:50 | disposition home or self-care (01) | DRG 399 ==
LOC: ER 00:48 → OVERFLOW 13:11 → WEST WING 14:32
PROVIDERS: ADMIT Hospitalist; ATTEND Hospitalist
PROC: 0DTJ4ZZ Resection of Appendix, Percutaneous Endoscopic Approach (ICD-10-PCS; principal; 2024-08-13 12:14)
DX: K35.80 Unspecified acute appendicitis (principal); I10 Essential (primary) hypertension; E78.5 Hyperlipidemia, unspecified; K59.00 Constipation, unspecified; Z88.0 Allergy status to penicillin; Z82.49 Family history of ischemic heart disease and other diseases of the circulatory system; Z79.899 Other long term (current) drug therapy
CPT/HCPCS: 96361; 96374; 97162; G0378; J2405

== ENCOUNTER 2024-08-19 13:25 | Emergency (ER) | payer OTHER ==
[~2024-08-19] VITALS: Ht 162.6 cm; Wt 94.7 kg
[~2024-08-19 13:25] MED LIST: HYDR-4902 PO; LISI10TA34 PO; PANT40TA2 PO; SENN-105 PO
--- NOTE | 2024-08-19 15:47 | DVH ---
CT ABDOMEN AND PELVIS WITHOUT CONTRAST CLINICAL HISTORY: pain TECHNIQUE: Multiple contiguous axial images of the abdomen and pelvis without intravenous contrast. The images were reformatted degenerate coronal and sagittal reconstructions. All CT scans at this medical facility are performed using dose modulation techniques as appropriate t o a performed exam including the following:Automated exposure control was utilized; adjustment of the MA and/or KV according to patient size; and use of iterative reconstruction technique. Radiation Dose Information: CT Dose: CTDI volume is 20.31 mGy. Dose-length product is 1088.45 mGy*cm Comparison: CT CT AB PEL WO CON-NO ORAL OR IV on DOS: 08/13/24 FINDINGS: Evaluation of the abdomen and pelvis is limited without intravenous contrast. There are interval postsurgical changes related to appendectomy. The small and large bowel loops demo nstrate normal caliber. Air intermixed with stool is seen throughout the colon. There are multiple small calcified gallstones in the gallbladder. The liver, pancreas, kidneys, ad renal glands, and spleen appear within normal limits. There is no gross evidence of abdominal lymphadenopathy. There is no free fluid or free air. The stomach grossly appears unremarkable. The abdominal aorta and IVC appear within normal limits. The bladder appears unremarkable for the degree of distention. Pelvic organ grossly appears within no rmal limits. There is no gross evidence of a pelvic mass. There is no free fluid collection. Lung bases are clear. There is no acute osseous abnormality. There are postsurgical changes in the anterior abdominal wall with subcutaneous fat stranding. IMPRESSION: 1. Interval postsurgical changes related to appendectomy. There is no acute process in the abdomen an d pelvis. 2. Cholelithiasis. HS:Y
--- NOTE | 2024-08-19 15:51 | ED.PDOC ---
History of Present Illness HPI Comments 69 y/o F, with a Hx of asthma, HTN, obesity, phlebectomy, and appendectomy, presents from her PCP's office for c/o constipation, today. Patient endorses on being sent from her PCP for an X-ray to r/o possible GI blockage, today, after c/o constipation symptoms since discharge home on 08/15/24 following recent appendectomy on 08/13/24 at [facility]. Patient comments on having constant sensation to empty her bowels in addition to only producing small amounts of fecal matter 1-2x a day. Patient states use of prescription medications provided by her PCP for constipation to no relief or improvement of symptoms. Patient denies having any abdominal distension or pain, rectal pain, chills, fever, or other associated symptoms or modifiers at this time. Chief Complaint: Constipation Time Seen by MD: 15:25 Reviewed Notes: Nurses Notes, Medications, Allergies Allergies: Coded Allergies: Penicillins (Verified Allergy, Unknown, 08/13/24) Home Meds Active Scripts Docusate Sodium (Colace) 100 Mg Cap, 1 CAP PO BID, #30 CAP Prov:JB LATHAM MD 08/19/24 Senna (Senna) 8.6 Mg Tab, 8.6 MG PO QPM, #14 TAB Prov:BERNABE DANIELSON MD 08/14/24 Hydrocodone-Acetaminophen (Hydrocodone Bitartrate/AC 5-325 mg) 1 Tab Tab, 1 TAB PO Q6HPRN PRN, #10 TAB Prov:BERNABE DANIELSON MD 08/14/24 Reported Medications Pantoprazole Sodium Sesquihydr (Protonix) 40 Mg Tab, 40 MG PO DAILY, TAB 08/14/24 Lisinopril (Lisinopril) 10 Mg Tab, 10 MG PO DAILY, MG 08/14/24 Information Source: Patient Mode of Arrival: Ambulatory Severity: Moderate Timing: Days Duration: Since onset Prehospital treatment: Other (see HPI) Past Medical History PAST MEDICAL HISTORY: Asthma, HTN Past Medical History (Other): obesity Surgical History: Appendectomy, Denies all surgeries Surgical History (Other): right foot Sx, phlebectomy 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 Family History Family History (Other): appendicitis Social History Smoker: Non-Smoker Alcohol: Occasionally Drugs: Denies Drug Use Lives In: Home Constitutional: denies: chills, diaphoresis, fatigue, fever, malaise, sweats, weakness, others EENTM: denies: blurred vision, double vision, ear bleeding, ear discharge, ear drainage, ear pain, ear ringing, eye pain, eye redness, hearing loss, mouth p ain, mouth swelling, nasal discharge, nose bleeding, nose congestion, nose pain, photophobia, tearing, throat pain, throat swelling, voice changes, others Respiratory: denies: cough, hemoptysis, orthopnea, SOB at rest, shortness of br eath, SOB with excertion, stridor, wheezing, others Cardiovascular: denies: chest pain, dizzy spells, diaphoresis, Dyspnea on exertion, edema, irregular heart beat, left arm pain, lightheadedness, palpitations, PND, syncope, others Gastrointestinal: reports: constipated; denies: abdomen distended, abdominal pain, blood streaked bowels, diarrhea, dysphagia, difficulty swallowing, hematemesis, melena, nausea, poor appetite, poor fluid intake, rectal bleeding, rectal pain, vomiting, others Genitourinary: denies: abnormal vagina bleeding, burning, dyspareunia, dysuria, flank pain, frequency, hematuria, incontinence, pain, , vagina discharge, urgency, others Neurological: denies: dizziness, fainting, headache, left sided numbness, left sided weakness, numbness, paresthesia, pre-existing deficit, right sided numbness, right sided weakness, seizure, speech problems, tingling, tremors, weakness, others Musculoskeletal: denies: back pain, gout, joint pain, joint swelling, muscle pain, muscle stiffness, neck pain, others Integumetry: denies: bruises, change in color, change in hair/nails, dryness, laceration, lesions, lumps, rash, wounds, others Allergic/Immunocompromised: denies: Difficulty Healing, Frequent Infections, Hives, Itching, others Hematologic/Lymphatic: denies: anemia, blood clots, easy bleeding, easy bruis ing, swollen glands, others Endocrine: denies: excessive hunger, excessive sweating, excessive thirst, exc essive urination, flushing, intolerance to cold, intolerance to heat, unexplained weight gain, unexplained weight loss, others Psychiatric: denies: anxiety, bipolar disorder, depression, hopeless, panic disorder, schizophrenia, sleepless, suicidal, others All Other Systems: Reviewed and Negative Physical Exam General Appearance: No Apparent Distress HEENT: Normal ENT Inspection, Pharynx Normal, TMs Normal Neck: Full Range of Motion, Non-Tender, Normal, Normal Inspection Respiratory: Chest Non-Tender, Lungs Clear, No Accessory Muscle Use, No Respiratory Distress, Normal Breath Sounds Cardiovascular: No Edema, No JVD, No Murmur, No Gallop, Normal Peripheral Pulses, Regular Rate/Rhythm Breast Exam: Deferred Gastrointestinal: No Organomegaly, Non Tender, No Pulsatile Mass, Normal Bowel Sounds, Soft, Other (Drain to the left lower quadrant) Genitalia: Deferred Pelvic: Deferred Rectal: Deferred Extremities: No calf tenderness, Normal capillary refill, Normal inspection, Normal range of motion, Non-tender, No pedal edema Musculoskeletal : Apperance: Normal Neurologic: Alert, 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 Was a procedure done?: No Differential Dx Considerations may include: constipation, bowel obstruction X-Ray, Labs, Meds, VS Vital Signs Date Time Temp Pulse Resp B/P (MAP) Pulse Ox O2 Delivery O2 Flow Rate FiO2 08/19/24 13:45 97.8 75 18 138/64 (88) 97 PROCEDURE(s): ABPL - CT AB PEL WO CON-NO ORAL OR IV IMPRESSION: 1. Interval postsurgical changes related to appendectomy. There is no acute process in the abdomen and pelvis. 2. Cholelithiasis. The patient was told to stop taking the codeine The patient was given a prescription of Colace The patient will follow up with the primary care doctor The patient will return to the emergency department's the condition worsens. Images Reviewed?: Images reviewed and evaluated by me Time of 1ST Reevaluation: 15:55 Reevaluation 1ST: Unchanged Patient Education/Counseling: Diagnosis, Treatment, Prognosis, Need For Follow Up Family Education/Counseling: No Family Present Departure 1 Departure Time of Disposition: 16:14 Impression: Primary Impression: Constipation Qualified Codes: K59.00 - Constipation, unspecified Additional Impressions: Cholelithiasis Qualified Codes: K80.20 - Calculus of gallbladder without cholecystitis without obstruction Status post appendectomy Disposition: HOME / SELF CARE / HOMELESS Condition: Fair e-Prescriptions Docusate Sodium (Colace) 100 Mg Cap 1 CAP PO BID, #30 CAP Prov: JB LATHAM MD 08/19/24 Discharged With: Self Critical Care Note Critical Care Time?: No Stability Stability form required: No Heart Score Heart Score: Heart Score Response (Comments) Value History N/A 0 EKG N/A 0 Age N/A 0 Risk Factors N/A 0 Troponin N/A 0 Total 0 I personally scribed for JB LATHAM MD ([email or web address]) on 08/19/24 at 15:50. Electronically submitted by Zaid Mora ([email or web address]). I personally scribed for JB LATHAM MD ([email or web address]) on 08/19/24 at 16:13. Electronically submitted by Zaid Mora ([email or web address]). JB LATHAM MD Aug 19, 2024 15:50
[2024-08-19] MEDS ORDERED: DOCU-94 PO (16:14)
[2024-08-19 16:46] VITALS: BP 142/74; PULSE 78; RESP 17; TEMP 98.7; O2SAT 97
== END 2024-08-19 16:49 | disposition home or self-care (01) ==
LOC: ER 13:25
DX: K80.20 Calculus of gallbladder without cholecystitis without obstruction (principal); K59.00 Constipation, unspecified; I10 Essential (primary) hypertension; J45.909 Unspecified asthma, uncomplicated; Z79.899 Other long term (current) drug therapy; Z88.0 Allergy status to penicillin; Z90.49 Acquired absence of other specified parts of digestive tract
CPT/HCPCS: 74176